=== PATIENT | female | born 2000 | race Caucasian/White ===

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

== ENCOUNTER 2022-11-27 09:44 | Emergency (ER) | payer OTHER ==
--- OUTSIDE RECORDS SUMMARY | 2022-11-27 09:48 | XMS REPORT | Continuity of Care Document ---
:2000 Author Organization [facility] t Address [address] [place] [address] Care Team Providers Name Role Phone PCP, PATIENT DOES NOT HAVE A Primary Care Physician Amanda Cuevas MD Attending Clinician RADIOLOGY Attending Clinician Unavailable Radiology Attending Clinician Unavailable ALEX LOGAN Admitting Clinician Unavailable Payers Payer Name Policy Type Policy Number Effective Date Expiration Date S ource Problems This patient has no known problems. Allergies, Adverse Reactions, Alerts Allergy Allergy Status Severity Reaction(s) Onset Inactive Treating Comm ents Source Name Type Date Date Clinician NO KNOWN Drug Active Univers ALLERGIE Class ity of [facility] No Known DA Active [facility] All[facility]ie [facility] (LUF/LI V/SA) Social History Social Habit Start Date Stop Date Quantity Comments [facility] to [facility]2 [facility] sure [facility] Smoking Status Start Date Stop Date Source Unknown if ever smoked Universit y [facility] Medications This patient has no known medications. Vital Signs Vital Name Observation Time Observation Value Comments Source Weight 2019-08-03 19:00:00 65 KG Height 2019-08-03 19:00:00 160.02 CM Height 2019-08-03 12:47:00 160.02 CM Weight 2019-08-03 12:47:00 68.03 KG Procedures Procedure Date / Time Performed Performing Clinician Sour e US PELVIS > 2019-07-25 16:00:22 Amanda Chamberlain [facility] 14 WEEKS [facility] Encounters Start End Encounter Admission Attending Care Care Encounter Source Date/Time Date/Time Type Type Clinicians Facility Department ID 2019-07-28 2019-07-28 Telephone Amanda Chamberlain [facility] [id number] Univers 00:00:00 00:00:00 [place] [id number] i [place] [id number] [facility] [id number] Ms dical nal [address] [facility] 2019-07-25 2019-07-25 Outpatient R RADIOLOGY [facility] [id number] Univers 09:26:59 23:59:00 ity of [facility] 2019-07-25 2019-07-25 Hospital Radiology [facility] [id number] Univers 09:26:00 23:59:00 Encounter [place] [id number] ity [facility] [id number] [id number] [facility] [address] Results Test Description Test Time Test Comments Results Result Sour e Comments US APPENDIX 2019-07-21 EXAM: Ultrasound of [facility] 4 appendixINDICATION: 14:58:04 [id number]: Right lower quadrant [id number] PARISON: NoneTECHNIQUE: Meza scale, color Doppler of right lower quadrant performed withimages saved in sagittal and transverse planes.FINDINGS: A normal appendix is not identified. No dilated tubular structure isidentified in the right lower quadrant. No free fluid or loculated fluidcollections.IM PRESSION: A normal appendix is not identified, however, no findings ofappendicitis.This final report was electronically signed by Dr Christine Rice MD 08/03/20192:51 PMDictated By: CHRISTINE RICEDate: 08/03/2019 14:51 US RENAL & 2019-07-21 EXAM: Renal [facility] 4 UltrasoundINDICATIO (KIDNEYS) 14:45:58 N: [id number]: Right flank [id number] PARISON: NoneTECHNIQUE: Transverse and longitudinal images of the kidneys and bladder wereobtained.FINDIN GS:Right Kidney:Length: 11.2 cmAppearance: Normal echogenicity.Colle ting system: Mild hydronephrosisStone s: NoneCyst/Mass: NoneLeft Kidney:Length: 11.4 cmAppearance: Normal echogenicity.Collec ting system: No hydronephrosisStone s: NoneCyst/Mass: NoneBladder:Normal. Bilateral ureteral jets were noted.IMPRESSION:Mi ld right-sided hydronephrosis. Bilateral jets noted.This final report was electronically signed by Dr Christine Rice MD 08/03/20192:39 PMDictated By: CHRISTINE RICEDate: 08/03/2019 14:39 BETA HCG II 2019-08-03 14:06:00 Test Item Value Reference Range Interpretation [facility]me [facility] BHCG II (test code = 44373.0 mIU/L 0.0-4.8 H A NEW EXPANDED METHOD FOR BHCG BHCGII) WILL BE INTRODU DIANDRA ON SEPTEMBER 28, 2006. THE DYNAM IC RANGE OF THE TEST HAS BEEN I NCREASED ALLOWING FOR FEWER DILUT UIONS, AND THE GESTATION WEEKS HAVE BEEN AGGREGATED TO A LLOW FOR EASE OF INTREPRETATION. PLEASE REFER TO THE INTERPRETAT ION TABLE BELOW. Beta hCG levels in non- individuals = < 4.83 IU/L GESTATIONAL AGE : 1-10 weeks 63.70 - 594169.00 IU/ L 11-15 weeks 70831.00 - 1519 96.00 IU/L 16-22 weeks 9383.80 - 58751.00 IU/L 23-40 weeks 173 7.20 - 20448.00 IU/L Detection of very Low Levels of hCG does not exclude . Repeat testing after 48 Hrs. is recommended. TH IS ASSAY SHOULD NOT BE USED TO DIAG NOSE ANY CONDITION UNRELATED TO SD EGNANCY. [facility] 13:32:00 Test Item Value Reference Range Interpretation Comments Lipase (test code = LIPA) 66 U/L 8-223 [facility]MP2020-06-[facility] 13:32:00 Test Item Value Reference Range Interpretation Comments Glucose (test code 95 mg/dl 75-110 = GLU) BUN (test code = 5.0 mg/dl 6.0-17.0 L BUN) Creatinine (test 0.6 mg/dl 0.4-1.2 code = CREA) Sodium (test code = 136 mmol/l 137-145 L NA) Potassium (test 3.6 mmol/l 3.5-5.0 code = K) Chloride (test code 106 mmol/l 98-107 = CL) CO2 (test code = 22 mmol/l 22-30 CO2) Calcium (test code 9.2 mg/dl 8.4-10.2 = CALC) T Protein (test 7.1 gm/dl 5.1-8.7 code = TP) Albumin (test code 2.8 gm/dl 3.5-4.6 L = ALB) A/G Ratio (test 0.7 % 1.1-2.2 L code = AGRAT) AST (SGOT) (test 17 U/L 11-36 code = AST) ALT (SGPT) (test 27 U/L 11-40 code = ALT) Alkaline Phos (test 101 U/L 47-114 code = ALKP) Total Bilirubin 0.6 mg/dl 0.2-1.2 (test code = TBIL) Globulin (test code 4.3 gm/dl 2.3-3.5 H = GLOBU) Calcium, Corrected 10.2 mg/dl 8.4-10.2 Various f ormulas exist (test code = for corrected s bolivar CALCCORR) calcium results , each yielding differ ent values. This co rrected result was base d on the formula: Co rrected Calcium = Serum Calcium + [0.8 * ( 4 - SerumAlbumin)] EGFR if >60 [place] (test code mL/min/1.73m\\ = EGFRAA) S\\2 EGFR if Non- >60 Estimate d Glomerular [place] (test code mL/min/1.73m\\ Filtrat ion Rate (eGFR) = EGFRNA) S\\2 Reference Inter vals Decision Points for 18 years and older and average body ma ss: >= 60 Does not exc lude kidney disease. 30 - 59 Suggests mod erate chronic kidney disease and indicates t he need for further investigation including asses sment of proteinuria and cardiovascular factors. < 30 U sually indicates a nee d for referral for assessment and management of c hronic kidney failure. [facility] WITH AUTO [id number] 13:13:00 Test Item Value Reference Range Interpretation Comments WBC (test code = 13.95 4.80-10.80 H WBC) 10\\S\\3/ul RBC (test code = 3.75 10\\S\\6/ul 4.20-5.40 L RBC) Hemoglobin (test 11.6 gm/dl 12.0-14.0 L code = HGB) Hematocrit (test 33.5 % 37.0-47.0 L code = HCT) MCV (test code = 89.3 fL 81.0-99.0 MCV) MCH (test code = 30.9 pg 27.0-31.0 MCH) MCHC (test code = 34.6 gm/dl 33.0-37.0 MCHC) RDW (test code = 13.3 % 11.5-14.5 RDWVC) Platelet (test code 200 10\\S\\3/ul 130-400 = PLT) MPV (test code = 9.4 fL 7.4-10.4 A "NOT MEASUR ED" MPV) RESULTS ARE DIS PLAYED WHEN THE INSTRU MENT HAS A SUPPRESSE D OR UNREPORTABLE RE SULT. THIS WILL MOST OFTEN HAPPEN WITH THE MPV WHEN THERE IS A N ABNORMAL PLATEL ET DISTRIBUTION DU E TO A CRITICAL LOW VA LUE OR PLATELET CLUMPI NG. THE RDW MAY BE SUPPRESSED IF T HERE ARE MULTIPLE PE AKS PRESENT ON THE RBC HISTOGRAM. IN T HIS CASE, A MANUAL REVIEW OF THE SLIDE WI LL BE PERFORMED, AND RBC MORPHOLOGY WILL BE NOTED ON THE RE PORT. NE% (test code = 84.1 % 42.0-75.0 H NE) LY% (test code = 8.5 % 13.0-42.0 L LY) MO% (test code = 6.7 % 4.0-14.0 MO) EO% (test code = 0.1 % 1.0-5.0 L EO) BA% (test code = 0.2 % 0.0-3.0 BA) IG% (test code = 0.4 % 0.0-0.4 IG%) [facility] WITH [id number] 13:13:00 Test Item Value Reference Range Interpretation Comments Color (test code = UCOLR) Lt. Yellow Clarity (test code = UCLAR) Clear Glucose (test code = UGLUC) NEGATIVE NEGATIVE N Bilirubin (test code = UBILI) NEGATIVE NEGATIVE N Ketones (test code = UKET) TRACE NEGATIVE A Specific [place] (test code = 1.010 1.005-1.030 A USPGR) Blood (test code = UBLD) MODERATE NEGATIVE A PH (test code = UPH) 6.0 4.5-8.0 A Protein (test code = UPROT) TRACE NEGATIVE A Urobilinogen (test code = U UROB) 0.2 >0.2 N Nitrite (test code = UNITR) NEGATIVE NEGATIVE N Leukocyte Esterase (test code = LARGE NEGATIVE A ULEUK) WBC (test code = WBCUR) 20-30 0-5 A RBC (test code = RBCUR) 10-20 0-5 A Epithial Cells (test code = U EPI) 0-5 0-10 A Bacteria (test code = UBACT) Trace None Seen,Trace [facility] 14 [id number] 16:04:01HISTORY: ?Estimate gestational age. Evaluate . TECHNIQUE: Routine OB sonography of the gravid uterus is completed. ? GA: 18 weeks and 1 day FINDINGS: Single live IUP is confirmed. MEASUREMENTS: ?BPD = 4.23 cm. = 18 weeks 6 day ? HC ?= 15.97 cm. = 18 weeks 6 day ? AC ? = 12.27 cm. = 18 weeks 0 day ? FL ?= 2.60 cm. = 18 weeks 0 day COMPOSITE AGE = 18 weeks 3 days PLACENTA / AMNIOTIC FLUID: ?Amniotic fluid is normal. ?Placenta is anterior Grade ?0 ? No evidence of placenta previa. ? FETUS:Normal four-chambered heart. ?FHR = 150 BPMThree vessels of umbilical cord identified. stomach seen on the left side.Normal kidneys and bladder.Normal head and spine. WEIGHT: 220 gm.LILA: 12/23/2019. CONCLUSION: Single live IUP of 18 weeks and 3 day ?in cephalic presentationconfirmed. ?YOAV WOOD M.D., D.A.B.R. [facility], Radiant Results Inft User - 07/25/2019 11:05 AM CDTHISTORY: Estimate gestational age. Evaluate .TECHNIQUE: Routine OB sonography of the gravid uterus is completed. GA: 18 weeks and 1 dayFINDINGS: Single live IUP is confirmed. MEASUREMENTS: BPD = 4.23 cm.= 18 weeks 6 day HC = 15.97 cm. = 18 weeks 6 day AC = 12.27 cm. = 18 weeks 0 day FL = 2.60 cm. = 18 weeks 0 dayCOMPOSITE AGE = 18 weeks 3 daysPLACENTA / AMNIOTIC FLUID: Amniotic fluid is normal. Placenta is anterior Grade 0 No evidence of placenta previa. FETUS:Normal four-chambered heart. FHR = 150 BPMThree vessels of umbilical cord identified. stomach seen on the left side.Normal kidneysand bladder.Normal head and spine. WEIGHT: 220 gm.LILA: 12/23/2019.CONCLUSION: Single live IUP of 18 weeks and 3 day in cephalic presentationconfirmed. YOAV WOOD M.D., D.A.B.R. [facility]
[2022-11-27 10:13] LABS: Absolute Lymphocytes (CBC) 2.8 K/uL (0.7-4.9); Hematocrit 36.5 % (36.0-45.0); Lymphocytes % 28.2 % (15.3-44.8); MCV 79.8 fL (80-100); MPV 7.5 fL (7.6-11.3); Platelets 241 thou/uL (152-406); RBC Red Blood Cell Count 4.57 M/uL (3.86-4.86)
[2022-11-27] MEDS ORDERED: ONDANSETRON 4 MG/2 ML VIAL ONE (10:13)
[2022-11-27] MEDS ORDERED: NA CHLORIDE 0.9% 1,000 ML ONE (10:13)
[2022-11-27] MEDS ORDERED: FAMOTIDINE 20 MG/2 ML VIAL IV ONE (10:13)
[2022-11-27 10:31] LABS: Potassium 3.7 mEq/L (3.5-5.1)
[2022-11-27 10:32] LABS: Albumin 3.4 g/dL (3.4-5.0); Bilirubin Total 0.2 mg/dL (0.2-1.0); Protein, Total 7.5 g/dL (6.4-8.2)
[2022-11-27 10:38] LABS: Urine Bacteria None Seen /HPF (<20); Urine Bilirubin NEGATIVE (Negative); Urine Blood Negative (Negative); Urine Clarity Extremely Turbid (Clear); Urine Color Light-Yellow (Yellow); Urine Glucose NEGATIVE (Negative); Urine Mucus Slight /HPF (None Seen); Urine Protein NEGATIVE (Negative); Urine RBC <5 /HPF (None Seen); Urine Urobilinogen Normal (Normal); Urine pH 7.5 (5.0-7.0)
--- NOTE | 2022-11-27 10:40 | RAD REPORT ---
EXAM DESCRIPTION: US - Abdomen Exam Limited - 11/27/2022 10:28 am CLINICAL HISTORY: ABD PAIN COMPARISON: Renal Ultrasound-Limited dated 07/19/2019 FINDINGS: The gallbladder demonstrates shadowing gallstones. No pericholecystic fluid or gallbladder wall thickening. The common bile duct is normal measuring 2 mm. The liver demonstrates no findings of intrahepatic biliary dilatation. IMPRESSION: Cholelithiasis.
[2022-11-27] MEDS ORDERED: MORPHINE 4 MG/ML SYR ONE ×2 (10:44→11:25)
--- NOTE | 2022-11-27 11:04 | RAD REPORT ---
EXAM DESCRIPTION: CTAbdomen Pelvis W Contrast - 11/27/2022 10:54 am CLINICAL HISTORY: Abdominal pain. ABD PAIN COMPARISON: Abdomen Exam Limited dated 11/27/2022 TECHNIQUE: Biphasic CT imaging of the abdomen and pelvis was performed with 100 ml non-ionic IV cont rast. All CT scans are performed using dose optimization technique as appropriate and may include automated exposure control or mA/KV adjustment according to patient size. FINDINGS: The lung bases are clear.Cholelithiasis. The liver, spleen, pancreas, adrenal glands and kidneys are within normal limits. No bowel obstruction, free air, free fluid or abscess. The appendix is normal. No evidence of signi ficant lymphadenopathy. No suspicious bony findings. IMPRESSION: Cholelithiasis.
--- NOTE | 2022-11-27 11:58 | ER ---
Nurse's Notes [facility] Name: Annelise Live Age: 22 yrs Sex: Female : 2000 Arrival Date: 11/27/2022 Time: 09:44 Bed 6 Private MD: Diagnosis: Other cholelithiasis without obstruction Presentation: 11/27 09:47 Chief complaint: EMS states: patient called for epigastric pain and chest pain, she ko1 states she smoked some synthetic marijuana last night about 0200. Coronavirus screen: At this time, the client does not indicate any symptoms associated with coronavirus-19. Ebola Screen: No symptoms or risks identified at this time. Initial Sepsis Screen: Does the patient meet any 2 criteria? No. Patient's initial sepsis screen is negative. Does the patient have a suspected source of infection? No. Patient's initial sepsis screen is negative. Risk Assessment: Do you want to hurt yourself or someone else? Patient reports no desire to harm self or others. Onset of symptoms was November 27, 2022. 09:47 Method Of Arrival: EMS: [facility] ko1 09:47 Acuity: SIVAN 3 ko1 Triage Assessment: 09:49 General: Appears distressed, uncomfortable, Behavior is cooperative, appropriate for ko1 age, anxious. Pain: Complains of pain in epigastric area. EENT: No deficits noted. Neuro: No deficits noted. Cardiovascular: Reports chest pain. Respiratory: No deficits noted. GI: Reports upper abdominal pain, nausea. : No deficits noted. Derm: No deficits noted. Musculoskeletal: No deficits noted. 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 - Social history:: Smoking status: Patient reports the use of cigarette tobacco products, smokes one pack cigarettes per day. Patient uses street drugs, marijuana. - Family history:: not pertinent. - Hospitalizations: : No recent hospitalization is reported. Screenin:11 [facility] ED Fall Risk Assessment (Adult) History of falling in the last 3 months, ko1 including since admission No falls in past 3 months (0 pts) Confusion or Disorientation No (0 pts) Intoxicated or Sedated No (0 pts) Impaired Gait No (0 pts) Mobility Assist Device Used No (0 pt) Altered Elimination No (0 pt) Score/Fall Risk Level 0 - 2 = Low Risk Oriented to surroundings, Maintained a safe environment, Educated pt \T\ family on fall prevention, incl call for assistance when getting out of bed, Assessed \T\ reinforced patient's understanding of fall precautions, Provided non-skid footwear, Hourly rounding (assess needs \T\ fall precautionary measures) done, Used ambulatory aids as needed (educated on \T\ assisted with), Used gait belt as appropriate. Abuse screen: Denies threats or abuse. Denies injuries from another. Nutritional screening: No deficits noted. Tuberculosis screening: No symptoms or risk factors identified. Assessment: 10:11 Reassessment: see triage note. ko1 11:04 Reassessment: Patient appears in no apparent distress at this time. No changes from kc6 previously documented assessment. Patient and/or family updated on plan of care and expected duration. Pain level reassessed. Patient is alert, oriented x 3, equal unlabored respirations, skin warm/dry/pink. 12:07 Reassessment: Patient appears in no apparent distress at this time. No changes from kc6 previously documented assessment. Patient and/or family updated on plan of care and expected duration. Pain level reassessed. Patient is alert, oriented x 3, equal unlabored respirations, skin warm/dry/pink. Vital Signs: 09:49 BP 119 / 65; Pulse 58; Resp 18; Temp 98; Pulse Ox 98% ; ko1 10:11 BP 128 / 84; Pulse 54; Resp 16; Pulse Ox 100% on R/A; ko1 11:04 BP 126 / 68; Pulse 75; Resp 18 S; Pulse Ox 98% on R/A; kc6 ED Course: 09:46 Patient arrived in ED. rn 09:46 Duran Daly MD is Attending Physician. rn 09:49 Triage completed. ko1 09:49 Arm band placed on right wrist. Patient placed in an exam room, on a stretcher, on ko1 pulse oximetry, Patient notified of wait time. 09:54 Faustina Ko RN is Primary Nurse. ko1 10:00 Inserted saline lock: 20 gauge in right antecubital area, using aseptic technique. ko1 Blood collected. 10:06 CBC with Diff Sent. ko1 10:06 CMP Sent. ko1 10:06 Lipase Sent. ko1 10:11 Patient has correct armband on for positive identification. Bed in low position. Call ko1 light in reach. Side rails up X2. Provided Education on: na. Pulse ox on. NIBP on. Door closed. Noise minimized. Lights dimmed. Warm blanket given. 10:26 US Abdomen Limited In Process Unspecified. EDMS 10:55 Abdomen In Process Unspecified. EDMS 11:57 XRAY Chest (1 view) In Process Unspecified. EDMS 11:57 Davin Tucker MD is Referral Physician. rn 12:08 No provider procedures requiring assistance completed. IV discontinued, intact, kc6 bleeding controlled, No redness/swelling at site. Pressure dressing applied. Administered Medications: 10:06 Drug: NS 0.9% IV 1000 ml IV at 1 bolus Per protocol; 1000 mL bolus Route: IV; Rate: 1 ko1 bolus; Site: right antecubital; 12:07 Follow up: Response: No adverse reaction; IV Status: Completed infusion; IV Intake: kc6 1000ml 10:06 Drug: Famotidine IVP 20 mg IVP once; dilute with 10 mL 0.9% NaCl; give over 2 minutes ko1 Route: IVP; Site: right antecubital; 11:03 Follow up: Response: No adverse reaction; Pain is unchanged, physician notified kc6 10:06 Drug: Ondansetron IVP 4 mg IVP once; over 2 minutes Route: IVP; Site: right antecubital;ko1 11:03 Follow up: Response: No adverse reaction kc6 10:35 Drug: morphine IVP or IV 4 mg IVP once over 4 mins Route: IVP; Infused Over: 4 mins; kc6 Site: right antecubital; 11:04 Follow up: Response: No adverse reaction; Pain is unchanged, physician notified kc6 11:18 Drug: morphine IVP or IV 4 mg IVP once over 4 mins Route: IVP; Infused Over: 4 mins; kc6 Site: right antecubital; 12:07 Follow up: Response: No adverse reaction; Pain is decreased; RASS: Alert and Calm (0) kc6 Medication: 12:08 VIS not applicable for this client. kc6 Intake: 12:07 IV: 1000ml; Total: 1000ml. kc6 Outcome: 11:58 Discharge ordered by . rn 12:08 Discharged to home ambulatory, kc6 12:08 Condition: improved 12:08 Discharge instructions given to patient, Instructed on discharge instructions, follow up and referral plans. medication usage, Demonstrated understanding of instructions, follow-up care, medications, Prescriptions given X 2, 12:08 Patient left the ED. kc6 Signatures: Dispatcher [employer] EDMS Duran Daly MD MD rn Campbell, Kaitlyn, RN RN kc6 Faustina Ko RN RN ko1
--- NOTE | 2022-11-27 11:58 | EDPHYS ---
Physician Documentation [facility] Name: Annelise Live Age: 22 yrs Sex: Female : 2000 Arrival Date: 11/27/2022 Time: 09:44 Bed 6 Private MD: ED Physician Duran Daly HPI: 11/27 10:14 This 22 yrs old Female presents to ER via EMS with complaints of abd pain. rn 10:14 The patient presents with abdominal pain in the epigastric area. Onset: The rn symptoms/episode began/occurred this morning. The symptoms radiate to chest. Associated signs and symptoms: Pertinent positives: nausea, Pertinent negatives: blood in stools, diarrhea, fever. Modifying factors: The symptoms are alleviated by nothing, the symptoms are aggravated by nothing. Severity of pain: At its worst the pain was moderate in the emergency department the pain is unchanged. The patient has not experienced similar symptoms in the past. Patient reports epigastric abdominal pain that began this morning. Has never had before. 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 Woke up with not much of an appetite and only ate bread. Now having approximately 1 hour of epigastric abdominal pain that radiates to chest and associated with nausea. No blood in stool. No hematemesis. No known history of gallbladder problems.. 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 - Social history:: Smoking status: Patient reports the use of cigarette tobacco products, smokes one pack cigarettes per day. Patient uses street drugs, marijuana. - Family history:: not pertinent. - Hospitalizations: : No recent hospitalization is reported. ROS: 10:14 Constitutional: Negative for fever, chills, and weight loss, Cardiovascular: Negative rn for palpitations, and edema, Respiratory: Negative for shortness of breath, cough, wheezing, and pleuritic chest pain, Abdomen/GI: Positive for abdominal pain and nausea MS/Extremity: Negative for injury and deformity, Skin: Negative for injury, rash, and discoloration, Neuro: Negative for headache, weakness, numbness, tingling, and seizure, Exam: 10:14 Constitutional: This is a well developed, well nourished patient who is awake, alert, rn appears uncomfortable and anxious but on the phone with her mother at the same time Head/Face: Normocephalic, atraumatic. Cardiovascular: Regular rate and rhythm. No pulse deficits. Respiratory: No increased work of breathing, no retractions or nasal flaring. Abdomen/GI: Soft, tender epigastric and right upper quadrant. Negative Wu's. No rebound. MS/ Extremity: Pulses equal, no cyanosis. Neurovascular intact. Full, normal range of motion. Equal circumference. Neuro: Awake and alert, GCS 15 10:40 ECG was reviewed by the Attending Physician. rn Vital Signs: 09:49 BP 119 / 65; Pulse 58; Resp 18; Temp 98; Pulse Ox 98% ; ko1 10:11 BP 128 / 84; Pulse 54; Resp 16; Pulse Ox 100% on R/A; ko1 11:04 BP 126 / 68; Pulse 75; Resp 18 S; Pulse Ox 98% on R/A; kc6 MDM: 09:46 Patient medically screened. rn 11:57 Differential diagnosis: cholecystitis, Cholelithiasis, gastritis, gastroesophageal rn reflux disease, non-specific abd pain, pancreatitis, Peptic Ulcer Disease. Data reviewed: vital signs, nurses notes, lab test result(s), radiologic studies, CT scan, ultrasound, and as a result, I will discharge patient. Counseling: I had a detailed discussion with the patient and/or guardian regarding the historical points, exam findings, and any diagnostic results supporting the discharge/admit diagnosis, lab results, radiology results, the need for outpatient follow up, to return to the emergency department if symptoms worsen or persist or if there are any questions or concerns that arise at home. Response to treatment: the patient's symptoms have mildly improved after treatment, and as a result, I will discharge patient. Special discussion: I discussed with the patient/guardian in detail that at this point there is no indication for admission to the hospital. It is understood, however, that if the symptoms persist or worsen the patient needs to return immediately for re-evaluation. Based on the history and exam findings, there is no indication for further emergent testing or inpatient evaluation. I discussed with the patient/guardian the need to see the general surgeon for further evaluation of the symptoms. ED course: I have personally reviewed all of the results, including but not limited to blood tests and imaging deemed necessary to safely discharge this patient at this time. All results given to and printed out for patient. I personally went over all the results with the patient and answered all questions. Patient will follow-up with PCP and or specialist as discussed. Return precautions given and understood.. 11/27 09:47 Order name: CBC with Diff; Complete Time: 10:28 rn 11/27 09:47 Order name: CMP; Complete Time: 10:39 rn 11/27 09:47 Order name: Lipase; Complete Time: 10:39 rn 11/27 09:47 Order name: Test, Urine; Complete Time: 10:39 rn 11/27 09:47 Order name: Urinalysis w/ reflexes; Complete Time: 10:39 rn 11/27 09:47 Order name: US Abdomen Limited; Complete Time: 11:11 rn 11/27 10:14 Order name: XRAY Chest (1 view) rn 11/27 10:55 Order name: Abdomen ; Complete Time: 11:11 EDMS 11/27 10:17 Order name: EKG; Complete Time: 10:17 rn 11/27 09:47 Order name: IV Saline Lock; Complete Time: 10:06 rn 11/27 09:47 Order name: Labs collected and sent; Complete Time: 10:06 rn 11/27 10:17 Order name: EKG - Nurse/Tech; Complete Time: 10:28 rn EC:40 Rate is 65 beats/min. Rhythm is regular. QRS [place] is Normal. CT interval is normal. QRS rn interval is normal. QT interval is normal. No Q waves. T waves are Normal. No ST changes noted. Clinical impression: Normal ECG. Interpreted by me. Reviewed by me. Administered Medications: 10:06 Drug: NS 0.9% IV 1000 ml IV at 1 bolus Per protocol; 1000 mL bolus Route: IV; Rate: 1 ko1 bolus; Site: right antecubital; 12:07 Follow up: Response: No adverse reaction; IV Status: Completed infusion; IV Intake: kc6 1000ml 10:06 Drug: Famotidine IVP 20 mg IVP once; dilute with 10 mL 0.9% NaCl; give over 2 minutes ko1 Route: IVP; Site: right antecubital; 11:03 Follow up: Response: No adverse reaction; Pain is unchanged, physician notified kc6 10:06 Drug: Ondansetron IVP 4 mg IVP once; over 2 minutes Route: IVP; Site: right antecubital;ko1 11:03 Follow up: Response: No adverse reaction kc6 10:35 Drug: morphine IVP or IV 4 mg IVP once over 4 mins Route: IVP; Infused Over: 4 mins; kc6 Site: right antecubital; 11:04 Follow up: Response: No adverse reaction; Pain is unchanged, physician notified kc6 11:18 Drug: morphine IVP or IV 4 mg IVP once over 4 mins Route: IVP; Infused Over: 4 mins; kc6 Site: right antecubital; 12:07 Follow up: Response: No adverse reaction; Pain is decreased; RASS: Alert and Calm (0) kc6 Disposition Summary: 11/27/22 11:58 Discharge Ordered Notes: Location: Home rn Problem: new rn Symptoms: have improved rn Condition: Stable rn Diagnosis - Other cholelithiasis without obstruction rn Followup: rn - With: Davin Tucker MD - When: As needed - Reason: Recheck today's complaints, Re-evaluation by your physician Discharge Instructions: - Discharge Summary Sheet rn - Cholelithiasis rn Forms: - Medication Reconciliation Form rn - Thank You Letter rn - 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 - Prescription Opioid Use rn - Patient Portal Instructions rn - Leadership Thank You Letter rn Prescriptions: - ondansetron 4 mg Oral Tablet,disintegrating - take 1 tablet ORAL route every 8 hours As needed; 12 tablet; Refills: 0, rn Product Selection Permitted - Tramadol 50 mg Oral Tablet - take 1 tablet ORAL route every 8 hours as needed; 12 tablet; Refills: 0, rn Product Selection Permitted Signatures: Dispatcher [employer] EDMS Duran Daly MD MD rn Campbell, Kaitlyn, RN RN kc6 Faustina Ko RN RN ko1 Corrections: (The following items were deleted from the chart) 10:39 09:48 Abdomen Pelvis W Con+CT.RAD.BRZ ordered. EDMS EDMS 10:55 10:39 Abdomen ordered. EDMS EDMS
--- NOTE | 2022-11-27 12:04 | RAD REPORT ---
EXAM DESCRIPTION: RAD - Chest Single View - 11/27/2022 11:56 am CLINICAL HISTORY: CHEST PAIN Chest pain. COMPARISON: No comparisons FINDINGS: Portable technique limits examination quality. The lungs are grossly clear. The heart is normal in size. No displaced fractures. IMPRESSION: No acute intrathoracic process suspected.
[2022-11-27 12:12] VITALS: TEMP 98
[2022-11-27 12:15] VITALS: BP 126/68; O2SAT 98
--- NOTE | 2022-11-28 11:43 | EKG ---
Test Date: 2022-11-27 Test Time: 10:30:05 Wholesale Account Executive: RACHEL MEASUREMENT RESULTS: Intervals: Rate: 65 IA: 130 QRSD: 86 QT: 424 QTc: 440 Juda: P: 54 IA: 130 QRS: 71 T: 44 INTERPRETIVE STATEMENTS: Normal sinus rhythm with sinus arrhythmia Normal ECG No previous ECG available for comparison Electronically Signed On 11-28-22 11:40:54 CDT by Darnell Ackerman
== END 2022-11-27 12:08 | disposition home or self-care (01) ==
LOC: ER 09:44
DX: K80.80 Other cholelithiasis without obstruction (principal); F17.210 Nicotine dependence, cigarettes, uncomplicated
CPT/HCPCS: 96361; 93005; 85025; 81001; 36415; 81025; 83690; 80053; 74177; 71045; 76705; 96375; 96374; 99284; Q9967; J2405; J7030

== ENCOUNTER 2022-12-31 08:56 | Emergency (ER) | payer OTHER ==
--- OUTSIDE RECORDS SUMMARY | 2022-12-31 08:59 | XMS REPORT | Continuity of Care Document ---
:2000 Author Organization [facility] t Address [address] [place] [address] Care Team Providers Name Role Phone PCP, [...] Active [facility] ALLERGIE Class ity of [facility] No Known DA Active [facility] (LUF/LI V/SA) Social History Social Habit Start Date Stop Date Quantity Comments Source [facility] to [facility]2 [facility] sure [facility] Smoking Status Start Date Stop Date Source Unknown if ever smoked [facility] Medications This patient has no known medications. Vital Signs Vital Name Observation Time Observation Value Comments Source Weight 2019-08-03 19:00:00 65 KG Height 2019-08-03 19:00:00 160.02 CM Height 2019-08-03 12:47:00 160.02 CM Weight 2019-08-03 12:47:00 68.03 KG Procedures Procedure Date / Time Performed Performing Clinician Sourc e US PELVIS > 2019-07-25 16:00:22 Amanda Chamberlain [facility] 14 WEEKS [facility] Encounters Start End Encounter Admission Attending Care Care Encounter Source Date/Time Date/Time Type Type Clinicians Facility Department ID 2019-07-28 2019-07-28 Telephone Amanda Chamberlain [facility] [id number] Univers 00:00:00 00:00:00 [place] [id number] i ty [facility] [id number] [place] [facility] [phone] Nm dical nal [address] 2019-07-25 2019-07-25 Outpatient R RADIOLOGY [facility] [id number] Univers 09:26:59 23:59:00 ity of [facility] 2019-07-25 2019-07-25 Hospital Radiology [facility] [id number] Univers 09:26:00 23:59:00 Encounter [place] [id number] ity [facility] [id number] [place] [phone] [facility] [address] [place] Results Test Description Test Time Test Comments Results Result Sourc e Comments US APPENDIX 2019-07-21 EXAM: Ultrasound of [facility] 4 appendixINDICATION: 14:58:04 [id number]: Right lower quadrant [id number] PARISON: NoneTECHNIQUE: Meza scale, color Doppler of [...] N BLADDER 4 UltrasoundINDICATIO (KIDNEYS) 14:45:58 N: [id number]: Right flank [id number] PARISON: NoneTECHNIQUE: Transverse and longitudinal images of the kidneys and bladder wereobtained.FINDIN GS:Right Kidney:Length: 11.2 cmAppearance: Normal echogenicity.Colle ting system: Mild hydronephrosisStone s: NoneCyst/Mass: NoneLeft Kidney:Length: 11.4 cmAppearance: Normal echogenicity.[facility] tin system: No hydronephrosisStone s: NoneCyst/Mass: NoneBladder:Normal. Bilateral ureteral jets were noted.IMPRESSION:Mi ld right-sided hydronephrosis. Bilateral jets noted.This final report was electronically signed by Dr Christine Rice MD 08/03/20192:39 PMDictated By: CHRISTINE RICEDate: 08/03/2019 14:39 BETA HCG II 2019-08-03 14:06:00 Test Item Value Reference Range Interpretation Comme [facility] BHCG II (test code = 81888.0 mIU/L 0.0-4.8 H A NEW EXPANDED METHOD [...] GESTATIONAL AGE : 1-10 weeks 63.70 - 762752.00 IU/ L 11-15 weeks 73026.00 - 1519 96.00 IU/L 16-22 weeks 9383.80 - 33950.00 IU/L 23-40 weeks 173 7.20 - 23433.00 IU/L Detection of very Low Levels of hCG does not exclude . Repeat testing after 48 Hrs. is recommended. TH IS ASSAY SHOULD NOT BE USED TO DIAG NOSE ANY CONDITION UNRELATED TO MS EGNANCY. [facility] 13:32:00 Test Item Value Reference Range Interpretation Comments Lipase (test code = LIPA) 66 U/L 8-223 [facility] 13:32:00 Test Item Value Reference Range Interpretation [...] ( 4 - SerumAlbumin)] EGFR if >60 Icelandic (test code mL/min/1.73m\\ = EGFRAA) S\\2 EGFR if Non- >60 Estimate d Glomerular Icelandic (test code mL/min/1.73m\\ Filtrat ion Rate (eGFR) = EGFRNA) S\\2 Reference Inter vals Decision Points for 18 years and older and average body ma ss: >= 60 Does not exc lude kidney disease. 30 - 59 Suggests mod erate chronic kidney disease and indicates the need for furthe r investigation including asses sment of proteinuria and cardiovascular factors. < 30 U sually indicates a nee d for referral for assessment and management of c hronic kidney failure. [facility] WITH AUTO [id number] 13:13:00 Test Item Value Reference Range Interpretation [...] (test code = 0.4 % 0.0-0.4 IG%) [facility] WITH [id number] 13:13:00 Test Item Value Reference Range Interpretation Comments Color (test code = UCOLR) Lt. Yellow Clarity (test code = UCLAR) Clear Glucose (test code = UGLUC) NEGATIVE NEGATIVE N Bilirubin (test code = UBILI) NEGATIVE NEGATIVE N Ketones (test code = UKET) TRACE NEGATIVE A Specific [place] (test code = 1.010 1.005-1.030 A USPGR) [...] code = UBACT) Trace None Seen,Trace N [facility] > 14 [id number] 16:04:01HISTORY: ?Estimate gestational age. Evaluate . TECHNIQUE: [...] ?in cephalic presentationconfirmed. ?YOAV WOOD M.D., D.A.B.R. [facility], Radiant Results Inft User [...] 0 day FL = 2.60 cm. = 18weeks 0 dayCOMPOSITE AGE = 18 weeks 3 daysPLACENTA / AMNIOTIC FLUID: Amniotic fluid is normal. Placenta is anterior Grade 0 No evidence of placenta previa. FETUS:Normal four-chambered heart. FHR = 150 BPMThree vessels of umbilical cord identified. stomach seen on the left side.Normal kidneys and bladder.Normal head and spine. WEIGHT: 220 gm.LILA: 12/23/2019.CONCLUSION: Single liveIUP of 18 weeks and 3 day in cephalic presentationconfirmed. YOAV WOOD M.D., D.A.B.R.[facility]
[2022-12-31 09:20] LABS: Specific Gravity 1.028 (1.005-1.030)
[2022-12-31] MEDS ORDERED: METOCLOPRAMIDE 5 MG TAB ONE (09:23)
[2022-12-31] MEDS ORDERED: BENZONATATE 100 MG CAP PO ONE (09:23)
[2022-12-31] MEDS ORDERED: KETOROLAC 30 MG/ML INJ ONE (09:23)
[2022-12-31] MEDS ORDERED: ACETAMINOPHEN 500 MG TAB ONE (09:23)
--- NOTE | 2022-12-31 10:04 | ER ---
Nurse's Notes [facility] Name: Annelise Live Age: 22 yrs Sex: Female : 2000 Arrival Date: 12/31/2022 Time: 08:56 Bed 14 Private MD: Diagnosis: Viral infection, unspecified Presentation: 12/31 08:58 Chief complaint: Patient states: COUGH, CONGESTION, BODY ACHES X 3 DAYS AGO. aa5 08:58 Coronavirus screen: congestion, cough unrelated to allergies. Ebola Screen: Patient aa5 denies travel to an Ebola-affected area in the 21 days before illness onset. Initial Sepsis Screen: Does the patient meet any 2 criteria? HR > 90 bpm. Does the patient have a suspected source of infection? No. Patient's initial sepsis screen is negative. Risk Assessment: Do you want to hurt yourself or someone else? Patient reports no desire to harm self or others. Onset of symptoms was December 2022. 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 - Social history:: Smoking status: Patient denies any tobacco usage or history of. Screenin:00 [facility] ED Fall Risk Assessment (Adult) History of falling in the last 3 months, aa5 including since admission No falls in past 3 months (0 pts) Confusion or Disorientation No (0 pts) Intoxicated or Sedated No (0 pts) Impaired Gait No (0 pts) Mobility Assist Device Used No (0 pt) Altered Elimination No (0 pt) Score/Fall Risk Level 0 - 2 = Low Risk Oriented to surroundings, Maintained a safe environment, Educated pt \T\ family on fall prevention, incl call for assistance when getting out of bed. Abuse screen: Denies threats or abuse. Nutritional screening: No deficits noted. Tuberculosis screening: No symptoms or risk factors identified. Assessment: 08:58 General: Appears uncomfortable, Behavior is calm, cooperative. Pain: Complains of pain aa5 in WHOLE BODY Pain currently is 8 out of 10 on a pain scale. Quality of pain is described as aching, Pain began 2-3 days ago. Is continuous. Neuro: Level of Consciousness is awake, alert, obeys commands, Oriented to person, place, time, situation. Cardiovascular: Heart tones S1 S2 present Rhythm is regular. Respiratory: Reports cough that is Airway is patent Respiratory effort is even, unlabored, Respiratory pattern is regular, symmetrical. GI: No signs and/or symptoms were reported involving the gastrointestinal system. : No signs and/or symptoms were reported regarding the genitourinary system. EENT: Reports nasal congestion. Derm: Skin is pink, warm \T\ dry. Musculoskeletal: Range of motion: intact in all extremities. 09:30 Reassessment: Patient is alert, oriented x 3, equal unlabored respirations, skin aa5 warm/dry/pink. Vital Signs: 08:58 BP 118 / 82; Pulse 94; Resp 18 S; Temp 98.3(O); Pulse Ox 98% on R/A; aa5 10:02 BP 120 / 81; Pulse 77; Resp 17; Pulse Ox 99% on R/A; rs5 ED Course: 08:58 Patient arrived in ED. eb 08:58 Eladio Alcantar MD is Attending Physician. kb 08:58 Arm band placed on. aa5 08:58 Patient has correct armband on for positive identification. Bed in low position. Call aa5 light in reach. Side rails up X 1. 09:03 Mireya Cisse, RN is Primary Nurse. aa5 09:05 Triage completed. aa5 10:30 No provider procedures requiring assistance completed. rs5 10:30 Patient did not have IV access during this emergency room visit. rs5 Administered Medications: 09:30 Drug: Acetaminophen PO 1000 mg PO once Route: PO; aa5 10:28 Follow up: Response: No adverse reaction aa5 09:30 Drug: MetoCLOPramide PO 10 mg PO once Route: PO; aa5 10:28 Follow up: Response: No adverse reaction aa5 09:30 Drug: Tessalon Perle PO 100 mg PO once Route: PO; aa5 10:28 Follow up: Response: No adverse reaction aa5 09:34 Drug: Ketorolac IM 30 mg IM once Route: IM; Site: right gluteus; aa5 10:28 Follow up: Response: No adverse reaction aa5 Medication: 09:34 VIS not applicable for this client. aa5 Outcome: 10:03 Discharge ordered by . ec2 10:30 Discharged to home ambulatory, with family, rs5 10:30 Condition: stable 10:30 Discharge instructions given to patient, family, Instructed on discharge instructions, follow up and referral plans. medication usage, Demonstrated understanding of instructions, follow-up care, medications, Prescriptions given X 1, 10:34 Patient left the ED. aa5 Signatures: Roopa Greene, FILIPE-Morales DENT-Mireya Le, RN RN aa5 Alana Snow Ricky RN RN rs5 Eladio Alcantar MD MD ec2
--- NOTE | 2022-12-31 10:04 | EDPHYS ---
Physician Documentation [facility] Name: Annelise Live Age: 22 yrs Sex: Female : 2000 Arrival Date: 12/31/2022 Time: 08:56 Bed 14 Private MD: ED Physician Eladio Alcantar HPI: 12/31 09:02 This 22 yrs old Female presents to ER via Unassigned with complaints of URI. ec2 09:02 Patient arrives today for evaluation of URI signs and symptoms. States that she has ec2 been experiencing 3 days of symptoms, specifically is having cough and congestion as well as body aches with subjective fevers and chills. Patient reports some occasional nausea without vomiting or diarrhea. Patient reports no urinary problems. 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 - Social history:: Smoking status: Patient denies any tobacco usage or history of. ROS: 09:02 Constitutional: as per hpi ec2 Exam: 09:02 Constitutional: GEN: NAD Head: atraumatic Eyes: EOMI Ears: External ears are ec2 normal. CV: regular rateLUNGS: no respiratory distress, no wheezes, no rales, no rhonchi ABD: non-distended SKIN: no evidence of rashes MSK: no evidence of trauma NEURO: moves all extremities equally Vital Signs: 08:58 BP 118 / 82; Pulse 94; Resp 18 S; Temp 98.3(O); Pulse Ox 98% on R/A; aa5 10:02 BP 120 / 81; Pulse 77; Resp 17; Pulse Ox 99% on R/A; rs5 MDM: 08:58 Patient medically screened. kb 09:02 ED course: Patient arrives today for evaluation of URI signs and symptoms. Examination ec2 remarkable well-appearing nontoxic individual with clear lung sounds and has slight tachycardia. We will treat the patient symptoms with Tylenol, Toradol, Reglan and Tessalon Perles. Will obtain viral swab. Currently consider viral infection, low suspicion for pneumonia given lack of focal lung sounds. Accordingly will defer chest x-ray.. 10:00 Data reviewed: vital signs. ED course: Patient with negative COVID testing. On ec2 reassessment patient is well-appearing in no acute distress. I suspect another viral process causing patient's symptoms. Will discharge home with return precautions given.. 11 09:00 Order name: Influenza Screen (a \T\ B); Complete Time: 09:49 ec2 12/31 09:00 Order name: COVID-19 SARS RT PCR; Complete Time: 10:00 ec2 12/31 09:08 Order name: Test, Urine; Complete Time: 09:49 ec2 Administered Medications: 09:30 Drug: Acetaminophen PO 1000 mg PO once Route: PO; aa5 10:28 Follow up: Response: No adverse reaction aa5 09:30 Drug: MetoCLOPramide PO 10 mg PO once Route: PO; aa5 10:28 Follow up: Response: No adverse reaction aa5 09:30 Drug: Tessalon Perle PO 100 mg PO once Route: PO; aa5 10:28 Follow up: Response: No adverse reaction aa5 09:34 Drug: Ketorolac IM 30 mg IM once Route: IM; Site: right gluteus; aa5 10:28 Follow up: Response: No adverse reaction aa5 Disposition Summary: 12/31/22 10:03 Discharge Ordered Notes: Location: Home ec2 Condition: Stable ec2 Diagnosis - Viral infection, unspecified ec2 Discharge Instructions: - Discharge Summary Sheet ec2 - Viral Illness, Adult ec2 Forms: - Medication Reconciliation Form ec2 - Thank You Letter ec2 - Antibiotic Education ec2 - Prescription Opioid Use ec2 - Patient Portal Instructions ec2 - Leadership Thank You Letter ec2 Prescriptions: - Compazine 10 mg Oral Tablet - take 1 tablet ORAL route every 8 hours As needed; 20 tablet; Refills: 0, ec2 Product Selection Permitted Signatures: Dispatcher [employer] Roopa Ashraf FNP-C FNP-Ckb Calderon, Audri, RN RN aa5 [place]a [place] RN RN rs5 Eladio Alcantar MD MD ec2 Corrections: (The following items were deleted from the chart) 09:07 09:02 Constitutional: GEN: NAD Head: atraumatic Eyes: EOMI Ears: External ears are ec2 normal. CV: Tachycardia LUNGS: no respiratory distress, no wheezes, no rales, no rhonchi ABD: non-distended SKIN: no evidence of rashes MSK: no evidence of trauma NEURO: moves all extremities equally ec2
[2022-12-31 10:48] VITALS: BP 118/82; TEMP 98.3; O2SAT 98
== END 2022-12-31 10:34 | disposition home or self-care (01) ==
LOC: ER 08:56
DX: B34.9 Viral infection, unspecified (principal); Z11.52 Encounter for screening for COVID-19
CPT/HCPCS: 81025; 87635; 87804; 96372; 99284

== ENCOUNTER → 2023-02-10 | Emergency (ER) | payer OTHER ==
--- OUTSIDE RECORDS SUMMARY | 2023-02-10 14:30 | XMS REPORT | Continuity of Care Document ---
Author Name Unknown Address [address] [facility] th[address] Address [address] [facility] [place] [address] Care Team Providers Care Dial Brusher Name Role Phone PCP, PATIENT DOES NOT HAVE A Primary Care Physic alicia Unavailable Amanda Chamberlain MD Attending Clinician [phone] RADIOLOGY Attending Clinician Unavailable Radiology Attending Clinician Unavailable ALEX LOGAN Admitting Clinician Atilio marques Payers Payer Name Policy Type Policy Number Effective Date Expirati on Date Source Allergies, Adverse Reactions, Alerts Allergy Name Allergy Type Status Severity Reaction(s) Onset Date Inactive Date Treating Clinician Comments Source NO KNOWN ALLERGIE S Drug Class Active [facility] No Known Drug Allergie s DA Active [facility] l (LUF/LI V/SA) Social History Social Habit Start Date Stop Date Quantity Comments Source Sex Assigned At [facility] Exposure to SARS-CoV-2 (event) Not sure [facility] Smoking Status Start Date Stop Date Source Unknown if ever smoked [facility] Vital Signs Vital Name Observation Time Observation Value Comments S ource Weight 2019-08-03 19:00:00 65 KG Height 2019-08-03 19:00:00 160.02 CM Height 2019-08-03 12:47:00 160.02 CM Weight 2019-08-03 12:47:00 68.03 KG Procedures Procedure Date / Time Performed Performing Clinicia n Source US PELVIS > 14 WEEKS 2019-07-25 16:00:22 Amanda Chamberlain [facility] Encounters Start Date/Time End Date/Time Encounter Type Admission Type Attending Clinicians Care Facility Care Department Encounter ID Source 2019-07-28 00:00:00 2019-07-28 00:00:00 Telephone Amanda Chamberlain [facility] Building [id number] [facility] 2019-07-25 09:26:59 2019-07-25 23:59:00 Outpatient R RADIOLOGY [facility] [id number] [facility] 2019-07-25 09:26:00 2019-07-25 23:59:00 Hospital Encounter Radiology Formerly [facility] [place] [id number] [facility] Results Test Description Test Time Test Comments Results Resul t Comments Source US APPENDIX 2019-07-21 4 14:58:04 EXAM: Ultrasound of appendixINDICATION: [id number]: Right lower quadrant [id number] PARISON: NoneTECHNIQUE: Meza scale, color Doppler of [...] 08/03/20192:51 PMDictated By: CHRISTINE RICEDate: 08/03/2019 14:51 [facility] RENAL & BLADDER (KIDNEYS) 2019-07-21 4 14:45:58 EXAM: Renal UltrasoundINDICATIO N: [id number]: Right flank [id number] PARISON: NoneTECHNIQUE: Transverse and longitudinal images of the kidneys and bladder wereobtained.FINDIN GS:Right Kidney:Length: 11.2 cmAppearance: Normal echogenicity.Collec ting system: Mild hydronephrosisStone s: NoneCyst/Mass: NoneLeft Kidney:Length: 11.4 cmAppearance: Normal echogenicity.Collec ting system: No hydronephrosisStone s: NoneCyst/Mass: NoneBladder:Normal. Bilateral ureteral jets were noted.IMPRESSION:Mi ld right-sided hydronephrosis. Bilateral jets noted.This final report was electronically signed by Dr Christine Rice MD 08/03/20192:39 PMDictated By: CHRISTINE RICEDate: 08/03/2019 14:39 [facility] 13:32:00* Test Item Value Reference Range Interpretation Comme nts Lipase (test code = LIPA) 66 U/L 8-223 [facility] 13:32:00* Test Item Value Reference Range Interpretation Comme nts Glucose (test code = GLU) 95 mg/dl 75-110 BUN (test code = BUN) 5.0 mg/dl 6.0-17.0 L Creatinine (test code = CREA) 0.6 mg/dl 0.4-1.2 Sodium (test code = NA) 136 mmol/l 137-145 L Potassium (test code = K) 3.6 mmol/l 3.5-5.0 Chloride (test code = CL) 106 mmol/l 98-107 CO2 (test code = CO2) 22 mmol/l 22-30 Calcium (test code = CALC) 9.2 mg/dl 8.4-10.2 T Protein (test code = TP) 7.1 gm/dl 5.1-8.7 Albumin (test code = ALB) 2.8 gm/dl 3.5-4.6 L A/G Ratio (test code = AGRAT) 0.7 % 1.1-2.2 L AST (SGOT) (test code = AST) 17 U/L 11-36 ALT (SGPT) (test code = ALT) 27 U/L 11-40 Alkaline Phos (test code = ALKP) 101 U/L 47-114 Total Bilirubin (test code = TBIL) 0.6 mg/dl 0.2-1.2 Globulin (test code = GLOBU) 4.3 gm/dl 2.3-3.5 H Calcium, Corrected (test code = CALCCORR) 10.2 mg/dl 8.4-10.2 Various formulas exist for corrected serum calcium results, each yielding different values. This corrected result was based on the formula: Corrected Calcium = SerumCalcium + [0.8 * ( 4 - SerumAlbumin)] EGFR if (test code = EGFRAA) >60 mL/min/1.73m\\ S\\2 EGFR if Non- (test code = EGFRNA) >60 mL/min/1.73m\\ S\\2 Estimated Glomerular Filtration Rate (eGFR) Reference Intervals Decision Points for 18 years and older and average body mass: >= 60 Does not exclude kidney disease. 30 - 59 Suggests moderate chronic kidney disease and indicates the need for further investigation including assessment of proteinuria and cardiovascular factors. < 30 Usually indicates a need for referral for assessment and management of chronic kidney failure. [facility] WITH AUTO [id number] 13:13:00* Test Item Value Reference Range Interpretation Comme nts WBC (test code = WBC) 13.95 10\\S\\3/ul 4.80-10.80 H RBC (test code = RBC) 3.75 10\\S\\6/ul 4.20-5.40 L Hemoglobin (test code = HGB) 11.6 gm/dl 12.0-14.0 L Hematocrit (test code = HCT) 33.5 % 37.0-47.0 L MCV (test code = MCV) 89.3 fL 81.0-99.0 MCH (test code = MCH) 30.9 pg 27.0-31.0 MCHC (test code = MCHC) 34.6 gm/dl 33.0-37.0 RDW (test code = RDWVC) 13.3 % 11.5-14.5 Platelet (test code = PLT) 200 10\\S\\3/ul 130-400 MPV (test code = MPV) 9.4 fL 7.4-10.4 A "NOT MEASURED" RESULTS ARE DISPLAYED WHEN THE INSTRUMENT HAS A SUPPRESSED OR UNREPORTABLE RESULT. THIS WILL MOST OFTEN HAPPEN WITH THE MPV WHEN THERE IS AN ABNORMAL PLATELET DISTRIBUTION DUE TO A CRITICAL LOW VALUE OR PLATELET CLUMPING. THE RDW MAY BE SUPPRESSED IF THERE ARE MULTIPLE PEAKS PRESENT ON THE RBC HISTOGRAM. IN THIS CASE, A MANUAL REVIEW OF THE SLIDE WILL BE PERFORMED, AND RBC MORPHOLOGY WILL BE NOTED ON THE REPORT. NE% (test code = NE) 84.1 % 42.0-75.0 H LY% (test code = LY) 8.5 % 13.0-42.0 L MO% (test code = MO) 6.7 % 4.0-14.0 EO% (test code = EO) 0.1 % 1.0-5.0 L BA% (test code = BA) 0.2 % 0.0-3.0 IG% (test code = IG%) 0.4 % 0.0-0.4 [facility] WITH [id number] 13:13:00 * Test Item Value Reference Range Interpretation Comme nts Color (test code = UCOLR) Lt. Yellow Clarity (test code = UCLAR) Clear Glucose (test code = UGLUC) NEGATIVE NEGATIVE N Bilirubin (test code = UBILI) NEGATIVE NEGATIVE N Ketones (test code = UKET) TRACE NEGATIVE A Specific [place] (test code = USPGR) 1.010 1.005-1.030 A Blood (test code = UBLD) MODERATE NEGATIVE A PH (test code = UPH) 6.0 4.5-8.0 A Protein (test code = UPROT) TRACE NEGATIVE A Urobilinogen (test code = U UROB) 0.2 >0.2 N Nitrite (test code = UNITR) NEGATIVE NEGATIVE N Leukocyte Esterase (test cod e = ULEUK) LARGE NEGATIVE A WBC (test code = WBCUR) 20-30 0-5 A RBC (test code = RBCUR) 10-20 0-5 A Epithial Cells (test code = U EPI) 0-5 0-10 A Bacteria (test code = UBACT) Trace None Seen,Trace N [facility] CenterUS P[facility]VIS > 14 [id number] 16:04:01HISTORY: ?Estimate gestational age. Evaluate . TECHNIQUE: Routine OB sonography of the gravid uterus is completed. ? GA: 18 weeks and 1 day FINDINGS: Single live IUP is confirmed. MEASUREMENTS: ?BPD = 4.23 cm. = 18 weeks 6 day ? HC ?= 15.97 cm. = 18 w eeks 6 day ? AC ? = 12.27 cm. = 18 weeks 0 day ? FL ?= 2.60 cm. = 18 weeks 0 day COMPOSITE AGE = 18 weeks 3 days PLACENTA / AMNIOTIC FLUID: ?Amniotic fluid is normal. ?Placenta is anterior Grade ?0 ? No evidence of placenta previa. ? FETUS:Normal four- chambered heart. ?FHR = 150 BPMThree vessels of umbilical cord identified. stomach seen on the left side.Normal kidneys and bladder.Normal head and spine. WEIGHT: 220 gm.LILA:12/23/2019. CONCLUSION: Single live IUP of 18 weeks and 3 day ?in cephalic presentationconfirmed. ?YOAV WOOD M.D., D.A.B.R. [facility], Radiant Results Inft User - 07/25/2019 11:05 AM CDTHISTORY: Estimate gestational age. Evaluate .TECHNIQUE: Routine OB sonography of the gravid uterus is completed. GA: 18 weeks and 1 dayFINDINGS: Single live IUP is confirmed. MEASUREMENTS: BPD = 4.23 cm. = 18 weeks 6 day HC = 15.97 cm. = 18 weeks 6 day AC = 12.27 cm. = 18 weeks 0 day FL =2.60 cm. = 18 weeks 0 dayCOMPOSITE AGE = 18 weeks 3 daysPLACENTA / AMNIOTIC FLUID: Amniotic fluid is normal. Placenta is anterior Grade 0 No evidence of placenta previa. FETUS:Normal four-chambered heart. FHR = 150 BPMThree vessels of umbilical cord identified. stomach seen on the left side.Normal kidneys and bladder.Normal head and spine. WEIGHT: 220 gm.LILA: 12/23/2019.CONCL USION: Single live IUP of 18 weeks and 3 day in cephalic presentationconfirmed. YOAV WOOD M.D., D.A.B.R.[facility]
--- NOTE | 2023-02-10 16:04 | RAD REPORT ---
EXAM DESCRIPTION: US - Transvaginal OB - 02/10/2023 3:50 pm CLINICAL HISTORY: with vaginal bleeding COMPARISON: None. FINDINGS: The uterus measures 8 x 4 x 4 centimeters. The endometrial stripe measures 5 millimeters. A gestational sac is not seen. Right ovary normal in size and echotexture. A 3.7 centimeter left ovarian cyst. Blood flow to the left ovary is present. No follow-up for the ova la nena cyst recommended The right and left adnexa unremarkable No significant free fluid IMPRESSION: Nonvisualization of a gestational sac within the endometrium. These findings could represent an early intrauterine in which the gestational sac is not se en. and even an ectopic can also result in this appearance. This all should be cor related clinically and with serial beta HCG levels. Followup endovaginal sonogram in 1 week recommend ed
--- NOTE | 2023-02-10 18:50 | ER ---
Nurse's Notes [facility] Name: Annelise Live Age: 22 yrs Sex: Female : 2000 Arrival Date: 02/10/2023 Time: 14:27 Bed IW10 Private MD: Diagnosis: Presentation: 02/10 15:23 Chief complaint: Patient states: LMP 12/20/22, positive test, woke with jl7 abdominal cramping and bleeding this morning. Coronavirus screen: At this time, the client does not indicate any symptoms associated with coronavirus-19. Ebola Screen: No symptoms or risks identified at this time. Initial Sepsis Screen: Does the patient meet any 2 criteria? No. Patient's initial sepsis screen is negative. Does the patient have a suspected source of infection? No. Patient's initial sepsis screen is negative. Risk Assessment: Do you want to hurt yourself or someone else? Patient reports no desire to harm self or others. 15:23 Method Of Arrival: Ambulatory [facility] 15:23 Acuity: SIVAN 3 [facility] 15:23 Onset of symptoms was February 10, 2023. 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 - Social history:: Smoking status: Patient denies any tobacco usage or history of. Assessment: 17:42 Reassessment: called from lobby no answer. 7 Vital Signs: 15:23 BP 128 / 77; Pulse 81; Resp 15; Temp 98.3; Pulse Ox 100% ; Weight 90.72 kg; Height 5 7 ft. 2 in. ; Pain 8/10; 15:23 Body Mass Index 36.58 (90.72 kg, 157.48 cm) jl7 15:23 Pain Scale: Adult [facility] ED Course: 14:30 Patient arrived in ED. im 14:37 Prem Abebe MD is Attending Physician. yvonne 14:40 Radiology exam delayed due to test not completed at this time. aa4 15:24 Triage completed. jl7 15:24 Arm band placed on right wrist. Patient placed in waiting room, Patient notified of jl7 wait time. 15:52 US Transvaginal Ob In Process Unspecified. EDAR 18:50 Prem Abebe MD is Attending Physician. ap3 Administered Medications: 18:45 Not Given (Patient Eloped): ns 0.9% 1000 ml IV at 1 bolus Per protocol; 1000 mL bolus jl7 Outcome: 18:50 Patient left the ED. ap3 Signatures: Dispatcher [employer] EDAR Prem Abebe MD MD cha Frazier, Amanda aa4 Abbe Robertson RN RN jl7 Katarina Garg RN RN ap3 Beatrice Adrian Corrections: (The following items were deleted from the chart) 15:24 15:24 PMHx: Hypertensive disorder; jl7 jl7
[2023-02-10 20:52] VITALS: BP 128/77; TEMP 98.3; O2SAT 100
== END ==
LOC: ER 14:27
DX: Z53.21 Procedure and treatment not carried out due to patient leaving prior to being seen by health care provider (principal)
CPT/HCPCS: 76817; 99281